=== PATIENT | male | born 1990 ===

== ENCOUNTER 2021-03-08 13:14 | Emergency (ER) | payer OTHER ==
[~2021-03-08] VITALS: Ht 172.7 cm; Wt 127.0 kg
[2021-03-08] MEDS ORDERED: CASIRIVIMAB/IMDEVIMAB 10 ML in SODIUM CHLORIDE 0.9% 100 ML IV ONE (13:45)
== END 2021-03-08 15:02 | disposition home or self-care (01) ==
LOC: ER 13:40
DX: U07.1 COVID-19 (principal); R50.9 Fever, unspecified; R05.9 Cough, unspecified; E11.40 Type 2 diabetes mellitus with diabetic neuropathy, unspecified; I10 Essential (primary) hypertension; G40.909 Epilepsy, unspecified, not intractable, without status epilepticus; J45.909 Unspecified asthma, uncomplicated
CPT/HCPCS: 99283

== ENCOUNTER 2023-12-08 06:52 | Emergency (ER) | payer OTHER ==
[~2023-12-08] VITALS: Ht 172.7 cm; Wt 117.9 kg
[2023-12-08 07:04] VITALS: PULSE 70; RESP 18; TEMP 97.8; O2SAT 99
[2023-12-08] MEDS ORDERED: PERIDEX473 M1 PO (07:35)
[2023-12-08] MEDS ORDERED: CORICIDIN COLD1 EACH PO (07:41)
[2023-12-08] MEDS ORDERED: AMOXICILLIN500 MG PO (08:47)
== END 2023-12-08 08:50 | disposition home or self-care (01) ==
LOC: FSED 07:02
DX: J02.9 Acute pharyngitis, unspecified (principal); K12.2 Cellulitis and abscess of mouth; J06.9 Acute upper respiratory infection, unspecified; K05.10 Chronic gingivitis, plaque induced; R11.0 Nausea; I10 Essential (primary) hypertension; J45.909 Unspecified asthma, uncomplicated; G40.909 Epilepsy, unspecified, not intractable, without status epilepticus; E11.40 Type 2 diabetes mellitus with diabetic neuropathy, unspecified; F17.200 Nicotine dependence, unspecified, uncomplicated; Z11.52 Encounter for screening for COVID-19
CPT/HCPCS: 0223U; 71046; 83518; 87400; 99283